=== PATIENT | female | born 1995 | race Caucasian/White ===

== ENCOUNTER 2016-11-07 18:47 | Emergency (ER) | payer OTHER ==
[~2016-11-07] VITALS: Ht 172.7 cm; Wt 116.4 kg
[2016-11-07 20:27] LABS: HEMATOCRIT 30.9 % (36.0-46.0); MCH 23.6 PG (29.0-34.0); MCHC 32.4 G/DL (30.0-36.0); MCV 72.9 FL (83-99); MEAN PLAT.VOLUME 10.1 uM^3 (9.5-12.4); PLATELET COUNT 333 K/uL (156-360); RBC DIS.WIDTH-CV 13.2 % (11.8-14.6); RBC DIS.WIDTH-SD 34.3 % (39-53); RED BLOOD COUNT 4.24 M/uL (3.80-5.20); WHITE BLOOD COUNT 9.2 K/uL (4.1-10.2)
[2016-11-07 20:42] LABS: QUANTITATIVE HCG < 4.0 MIU/ML
[2016-11-07] MEDS ORDERED: SLOW RELEASE I250 MG PO (21:20)
[2016-11-07 21:42] VITALS: BP 135/95
== END 2016-11-07 21:42 | disposition home or self-care (01) ==
LOC: EME 18:47
PROVIDERS: Physician Assistant
DX: N92.0 Excessive and frequent menstruation with regular cycle (principal); D50.9 Iron deficiency anemia, unspecified; E66.9 Obesity, unspecified; F17.200 Nicotine dependence, unspecified, uncomplicated; Z68.39 Body mass index [BMI] 39.0-39.9, adult
CPT/HCPCS: 84443; 84702; 85027; 99281; 99284